=== PATIENT | male | born 1950 | race Caucasian/White ===

== ENCOUNTER 2016-04-21 11:03 | Outpatient (CLI) | payer MEDICARE, OTHER ==
--- NOTE | 2016-04-21 14:03 | Diagnostic Imaging Report ---
[facility] [address] [facility].[address] [address] Report Submission Date: Apr 21, 2016 11:54:36 AM CHECK SCALER Patient Study Name: KD BENNETT Date: Apr 21, 2016 11:16:02 AM CHECK SCALER Modality Type: CR Gender: M Description: CHEST : 52 Institution: [facility] Physician: THOMAS NISHI 2 views of the chest History: PT COMPLAINS OF A COUGH X3 DAYS. SMOKER FOR 2 YEARS. COPD (Hx) / COUGH AND COPD Findings: Comparison: December 28, 2012 Cardio medicinal silhouette is stable. Again noted are hyperexpanded lung arriaza with prominent basilar predominant interstitial lung markings Left basilar atelectasis. Patchy air space opacity right lower lobe Degenerative changes thoracic spine Impression: 1. Emphysema. Basilar predominant interstitial lung disease. 2. New 1.4 cm patchy air space opacity right lower lobe, recommend followup to resolution 3.Left basilar atelectasis 4.No pleural effusion. Electronically signed on Apr 21, 2016 11:54:36 AM CHECK SCALER by: Misty FISHER
== END 2016-04-21 11:04 ==
LOC: RAD 11:03
PROVIDERS: ATTEND Family Medicine
DX: J43.9 Emphysema, unspecified (principal); J98.11 Atelectasis; F17.210 Nicotine dependence, cigarettes, uncomplicated
CPT/HCPCS: 71020

== ENCOUNTER 2016-04-28 10:08 | Outpatient (CLI) | payer MEDICARE, MEDICAID ==
[2016-04-28 10:36] LABS: BASOPHILS % 0.3 (0.0-1.5); EOSINOPHILS % 1.7 % (0.0-6.8); LYMPHOCYTES # 1.5 # k/uL (0.6-4.0); MEAN CORPUSCULAR HEMOGLOBIN 29.5 pg (28.0-34.0); MONOCYTES # 1.1 # k/uL (0.0-0.9); MONOCYTES % 9.7 % (0.0-11.0); NEUTROPHILS # 8.4 # k/uL (1.4-7.7)
--- NOTE | 2016-04-28 14:55 | Diagnostic Imaging Report ---
[facility] [address] [facility].[address] [address] Report Submission Date: Apr 28, 2016 11:12:23 AM FUELS ENGINEER Patient Study Name: KD BENNETT Date: Apr 28, 2016 10:39:36 AM FUELS ENGINEER Modality Type: CR Gender: M Description: CHEST : 52 Institution: [facility] Physician: THOMAS NISHI 2 views of the chest History: COUGH, DIFFICULTY BREATHING X 14 DAYS HX EMPHYSEMA. SMOKER X 20 YEARS ( Hx) / COUGH, WHEEZING, FATIGUE Findings: Comparison: 04/21/16 The deep to the top of Hyperexpanded lung arriaza are again noted Heart is normal in size. Prominent pulmonary arteries Right basilar platelike atelectasis seen. There is no pleural effusion, left basilar scarring stable. Degenerative changes of the thoracic spine Impression: 1. Resolving right lower lobe of atelectasis/ infiltrate. 2. Stable left basilar scarring/atelectasis. 3. No pleural effusion. Emphysema. Basilar predominant interstitial changes. Pulmonary arterial hypertension Electronically signed on Apr 28, 2016 11:12:23 AM FUELS ENGINEER by: Misty FISHER
== END 2016-04-28 10:10 ==
LOC: LAB 10:08
PROVIDERS: ATTEND Family Medicine
DX: J18.9 Pneumonia, unspecified organism (principal); J44.9 Chronic obstructive pulmonary disease, unspecified
CPT/HCPCS: 36415; 71020; 85025; 87400

== ENCOUNTER 2016-05-05 09:44 | Outpatient (CLI) | payer MEDICARE ==
[2016-05-05 10:06] LABS: BASOPHILS % 0.2 (0.0-1.5); LYMPHOCYTES # 2.3 # k/uL (0.6-4.0); MEAN CORPUSCULAR HEMOGLOBIN 31.1 pg (28.0-34.0); MONOCYTES # 0.7 # k/uL (0.0-0.9); MONOCYTES % 6.3 % (0.0-11.0); NEUTROPHILS # 8.1 # k/uL (1.4-7.7)
[2016-05-05 10:34] LABS: eGFR (African) > 60; eGFR (Non-African) > 60
== END 2016-05-05 09:45 ==
LOC: RT 09:44
PROVIDERS: ATTEND Family Medicine
DX: I10 Essential (primary) hypertension (principal); R00.0 Tachycardia, unspecified; R06.09 Other forms of dyspnea; J18.9 Pneumonia, unspecified organism
CPT/HCPCS: 36415; 80053; 85025

== ENCOUNTER 2017-02-19 12:29 | Outpatient (CLI) | payer OTHER ==
--- NOTE | 2017-02-19 15:54 | Diagnostic Imaging Report ---
NISHI GUZMAN [facility] [address] [facility] [address] [address] Report Submission Date: Feb 19, 2017 1:03:45 PM BEE WORKER Patient Study Name: KD BENNETT Date: Feb 19, 2017 12:38:20 PM BEE WORKER Modality Type: DX Gender: M Description: SPINE : 52 Institution: [facility] Physician: NISHI GUZMAN Examination: Plain film lumbar spine History: Back discomfort Findings: 3 views of the lumbar spine demonstrate normal height. No anterior compression. Anterior, lateral, and posterior osteophytes. L4/5 disc space narrowing. Vascular calcifications. Impression: Degenerative changes. No compression deformity. If patient is experiencing neurologic symptoms, consider obtaining MRI to further evaluate. Electronically signed on Feb 19, 2017 1:03:45 PM BEE WORKER by: Stew FISHER
== END 2017-02-19 13:30 ==
LOC: RAD 12:29
PROVIDERS: ATTEND Family Medicine
DX: M54.42 Lumbago with sciatica, left side (principal)
CPT/HCPCS: 72100